=== PATIENT | female | born 1970 | race Two or more races ===

== ENCOUNTER 2019-04-11 16:29 | Emergency (ER) | payer OTHER ==
[~2019-04-11] VITALS: Ht 167.6 cm; Wt 74.8 kg
[2019-04-11] MEDS ORDERED: FAMOTIDINE 20 MG/2 ML VIAL IVP ONE (16:45)
[2019-04-11] MEDS ORDERED: ONDANSETRON PF 4 MG/2 ML VIAL. IV ONE (16:45)
[2019-04-11] MEDS ORDERED: LIDO:MAALOX 1:1 20 ML SINGLE DOSE. SWSW ONE (16:45)
[2019-04-11] MEDS ORDERED: IV NORMAL SALINE 1000ML BAG 1,000 ML IV ONE (16:45)
[2019-04-11 17:03] LABS: BILIRUBIN,URINE NEGATIVE (NEG); CLARITY,URINE TURBID; COLOR,URINE AMBER; NITRITE,URINE NEGATIVE (NEG); PH,URINE 5.5; PROTEIN,URINE NEGATIVE (NEG-TRACE); UROBILINOGEN,URINE 0.2 mg/dL (0.2 mg/dL)
[2019-04-11 17:04] LABS: BASO % 0 % (0-3); EOS % 0 % (0-3); HEMATOCRIT 40.4 % (36.0-47.0); HEMOGLOBIN 13.6 g/dL (12.0-15.5); LYMPH # 0.7 x10^3/uL (1.0-4.8); LYMPH % 6 % (24-48); MEAN CORPUSCULAR HEMOGLOBIN 29 pg (25-35); MEAN CORPUSCULAR HGB CONC 34 g/dL (31-37); MEAN CORPUSCULAR VOLUME 85 fL (79-100); MONO # 0.3 x10^3/uL (0.0-1.1); MONO % 2 % (0-9); NEUT # 11.7 x10^3uL (1.8-7.7); NEUT % 92 % (31-73); PLATELET COUNT 202 x10^3/uL (140-400); RED BLOOD COUNT 4.75 x10^6/uL (3.50-5.40); WHITE BLOOD COUNT 12.7 x10^3/uL (4.0-11.0)
[2019-04-11 17:19] LABS: AMORPHOUS SEDIMENT,UR PRESENT /HPF; BACTERIA,URINE 0 /HPF (0-FEW); RBC,URINE 0 /HPF (0-2); SQUAMOUS EPITHELIAL CELL,UR MOD /LPF; WBC,URINE 0 /HPF (0-4)
[2019-04-11 17:25] LABS: AMPHETAMINE/METHAMPHETAMINE NEG (NEG); BARBITURATES NEG (NEG); BENZODIAZEPINES NEG (NEG); CANNABINOIDS NEG (NEG); COCAINE NEG (NEG); METHADONE NEG (NEG); OPIATES NEG (NEG); PHENCYCLIDINE NEG (NEG)
[2019-04-11 18:54] VITALS: BP 133/63
[2019-04-11 19:07] LABS: CALCIUM 8.7 mg/dL (8.5-10.1); CREATININE 0.6 mg/dL (0.6-1.0); GFR 105.8; POTASSIUM 3.7 mmol/L (3.5-5.1)
[2019-04-11 19:13] LABS: ALBUMIN 3.5 g/dL (3.4-5.0); ALBUMIN/GLOBULIN RATIO 0.9 (1.0-1.7); MAGNESIUM 1.9 mg/dL (1.8-2.4); TOTAL BILIRUBIN 0.8 mg/dL (0.2-1.0); TOTAL PROTEIN 7.6 g/dL (6.4-8.2)
[2019-04-11] MEDS ORDERED: IOHEXOL 300 MG/ML 100ML VIAL. IV ONE (19:15)
[2019-04-11 19:23] LABS: % BANDS 15 % (0-9); % LYMPHS 5 % (24-48); % MONOS 3 % (0-10); % SEGS 77 % (35-66)
[2019-04-11 19:24] LABS: PLT ESTIMATE ADEQUATE (ADEQUATE)
[2019-04-11 19:30] LABS: CREATINE KINASE 63 U/L (26-192)
[2019-04-11] MEDS ORDERED: CONTRAST GIVEN. MC PRN (19:30)
--- NOTE | 2019-04-11 19:36 | PHYS DOC ---
Past Medical History Past Medical History: GERD (ZOE RICO APRN) Past Surgical History: No Surgical History (ZOE RICO APRN) Alcohol Use: None Drug Use: None (ZOE RICO APRN) Adult General Chief Complaint Chief Complaint: ABDOMINAL PAIN HPI HPI Patient is a 49 year old female with a history of acid reflux who presents to the ED today complaining of lower abdominal pain rated at 6 out of 10 described as sharp intermittently since 11 AM with nausea and vomiting. Patient denies anything exacerbating or relieving the pain. Denies any diarrhea. (ZOE RICO APRN) Review of Systems Review of Systems Constitutional: Denies fever or chills [] Eyes: Denies change in visual acuity, redness, or eye pain [] HENT: Denies nasal congestion or sore throat [] Respiratory: Denies cough or shortness of breath [] Cardiovascular: No additional information not addressed in HPI [] GI: Reports lower abdominal pain with nausea vomiting, denies bloody stools or diarrhea [] : Denies dysuria or hematuria [] Musculoskeletal: Denies back pain or joint pain [] Integument: Denies rash or skin lesions [] Neurologic: Denies headache, focal weakness or sensory changes [] All other systems were reviewed and found to be within normal limits, except as documented in this note. (ZOE RICO APRN) Current Medications Current Medications Current Medications Medications (Trade) Dose Ordered Sig/Rinku Start Time Stop Time Status Last Admin Dose Admin Ciprofloxacin/ Dextrose 200 ml @ 200 mls/hr 1X ONCE 04/11/19 21:00 04/11/19 21:16 DC 04/11/19 20:09 200 MLS/HR Famotidine (Pepcid Vial) 20 mg 1X ONCE 04/11/19 16:45 04/11/19 16:57 DC 04/11/19 17:06 20 MG Info (CONTRAST GIVEN -- Rx MONITORING) 1 each PRN DAILY PRN 04/11/19 19:30 04/11/19 21:16 DC Iohexol (Omnipaque 300 Mg/ml) 75 ml 1X ONCE 04/11/19 19:15 04/11/19 19:20 DC 04/11/19 19:25 75 ML Metronidazole 100 ml @ 100 mls/hr 1X ONCE 04/11/19 20:00 04/11/19 20:59 DC 04/11/19 20:09 100 MLS/HR Multi-Ingredient Mouthwash/Gargle (Gi Cocktail) 20 ml 1X ONCE 04/11/19 16:45 04/11/19 16:57 DC 04/11/19 17:07 20 ML Ondansetron HCl (Zofran) 4 mg 1X ONCE 04/11/19 16:45 04/11/19 16:57 DC 04/11/19 17:07 4 MG Sodium Chloride 1,000 ml @ 1,000 mls/hr 1X ONCE 04/11/19 16:45 04/11/19 17:44 DC 04/11/19 17:07 1,000 MLS/HR (JAYY GARCIA DO) Allergies Allergies Allergies Coded Allergies Type Severity Reaction Last Updated Verified No Known Drug Allergies 04/11/19 No (JAYY GARCIA DO) Physical Exam Physical Exam Constitutional: Well developed, well nourished, no acute distress, non-toxic appearance. [] HENT: Normocephalic, atraumatic, bilateral external ears normal, oropharynx moist, no oral exudates, nose normal. [] Eyes: PERRLA, EOMI, conjunctiva normal, no discharge. [] Neck: Normal range of motion, no tenderness, supple, no stridor. [] Cardiovascular:Heart rate regular rhythm, no murmur [] Lungs & Thorax: Bilateral breath sounds clear to auscultation [] Abdomen: Bowel sounds normal, soft, mild tenderness to the epigastric region, no point tenderness to the right upper quadrant or right lower quadrant, no masses, no pulsatile masses. [] Skin: Warm, dry, no erythema, no rash. [] Back: No tenderness, no CVA tenderness. [] Extremities: No tenderness, no cyanosis, no clubbing, ROM intact, no edema. [] Neurologic: Alert and oriented X 3, normal motor function, normal sensory function, no focal deficits noted. [] Psychologic: Affect normal, judgement normal, mood normal. [] (ZOE RICO APRN) Current Patient Data Vital Signs Vital Signs Date Time Temp Pulse Resp B/P (MAP) Pulse Ox O2 Delivery O2 Flow Rate FiO2 04/11/19 18:54 66 16 133/63 (86) 97 Room Air 04/11/19 16:35 98.1 98.1 (JAYY GARCIA DO) Lab Values Laboratory Tests Test 04/11/19 16:35 04/11/19 16:45 04/11/19 16:50 04/11/19 18:45 Urine Collection Type Unknown Urine Color [place] Urine Clarity Turbid Urine pH 5.5 Urine Specific [place] >=1.030 Urine Protein Negative mg/dL (NEG-TRACE) Urine Glucose (UA) Negative mg/dL (NEG) Urine Ketones (Stick) 15 mg/dL (NEG) Urine Blood Negative (NEG) Urine Nitrite Negative (NEG) Urine Bilirubin Negative (NEG) Urine Urobilinogen Dipstick 0.2 mg/dL (0.2 mg/dL) Urine Leukocyte Esterase Negative (NEG) Urine RBC 0 /HPF (0-2) Urine WBC 0 /HPF (0-4) Urine Squamous Epithelial Cells Mod /LPF Urine Amorphous Sediment Present /HPF Urine Bacteria 0 /HPF (0-FEW) Urine Mucus Mod /LPF Urine Opiates Screen Neg (NEG) Urine Methadone Screen Neg (NEG) Urine Barbiturates Neg (NEG) Urine Phencyclidine Screen Neg (NEG) Urine Amphetamine/Methamphetamine Neg (NEG) Urine Benzodiazepines Screen Neg (NEG) Urine Cocaine Screen Neg (NEG) Urine Cannabinoids Screen Neg (NEG) Urine Ethyl Alcohol Neg (NEG) POC Urine HCG, Qualitative Hcg negative (Negative) White Blood Count 12.7 x10^3/uL (4.0-11.0) H Red Blood Count 4.75 x10^6/uL (3.50-5.40) Hemoglobin 13.6 g/dL (12.0-15.5) Hematocrit 40.4 % (36.0-47.0) Mean Corpuscular Volume 85 fL (79-100) Mean Corpuscular Hemoglobin 29 pg (25-35) Mean Corpuscular Hemoglobin Concent 34 g/dL (31-37) Red Cell Distribution Width 14.0 % (11.5-14.5) Platelet Count 202 x10^3/uL (140-400) Neutrophils (%) (Auto) 92 % (31-73) H Lymphocytes (%) (Auto) 6 % (24-48) L Monocytes (%) (Auto) 2 % (0-9) Eosinophils (%) (Auto) 0 % (0-3) Basophils (%) (Auto) 0 % (0-3) Neutrophils # (Auto) 11.7 x10^3uL (1.8-7.7) H Lymphocytes # (Auto) 0.7 x10^3/uL (1.0-4.8) L Monocytes # (Auto) 0.3 x10^3/uL (0.0-1.1) Eosinophils # (Auto) 0.0 x10^3/uL (0.0-0.7) Basophils # (Auto) 0.0 x10^3/uL (0.0-0.2) Segmented Neutrophils % 77 % (35-66) H Band Neutrophils % 15 % (0-9) H Lymphocytes % 5 % (24-48) L Monocytes % 3 % (0-10) Platelet Estimate Adequate (ADEQUATE) Sodium Level 140 mmol/L (136-145) Potassium Level 3.7 mmol/L (3.5-5.1) Chloride Level 106 mmol/L (98-107) Carbon Dioxide Level 26 mmol/L (21-32) Anion Gap 8 (6-14) Blood Urea Nitrogen 14 mg/dL (7-20) Creatinine 0.6 mg/dL (0.6-1.0) Estimated GFR (Cockcroft-Gault) 105.8 BUN/Creatinine Ratio 23 (6-20) H Glucose Level 107 mg/dL (70-99) H Calcium Level 8.7 mg/dL (8.5-10.1) Magnesium Level 1.9 mg/dL (1.8-2.4) Total Bilirubin 0.8 mg/dL (0.2-1.0) Aspartate Amino Transferase (AST) 10 U/L (15-37) L Alanine Aminotransferase (ALT) 15 U/L (14-59) Alkaline Phosphatase 67 U/L (46-116) Creatine Kinase 63 U/L (26-192) Creatine Kinase MB (Mass) 0.8 ng/mL (0.0-3.6) Creatine Kinase MB Relative Index % (0-4) Troponin I Quantitative < 0.017 ng/mL (0.000-0.055) JG-Gce-F-Type Natriuretic Peptide 62 pg/mL (0-124) Total Protein 7.6 g/dL (6.4-8.2) Albumin 3.5 g/dL (3.4-5.0) Albumin/Globulin Ratio 0.9 (1.0-1.7) L Lipase 90 U/L (73-393) Thyroid Stimulating Hormone (TSH) 0.858 uIU/mL (0.358-3.74) Laboratory Tests 04/11/19 16:50 Laboratory Tests 04/11/19 18:45 (JAYY GARCIA DO) EKG EKG 17:[address] Leos sinus rhythm heart rate 61 no STEMI[] (ZOE RICO APRN) Radiology/Procedures Radiology/Procedures []PROCEDURE: CT ABD PELV W/ IV CONTRST ONLY PQRS Compliance statement: One or more of the following individualized dose reduction techniques were utilized for this examination: 1. Automated exposure control. 2. Adjustment of the mA and/or kV according to patient size. 3. Use of iterative reconstruction technique. Indication:Epigastric pain with nausea and vomiting. TECHNIQUE: CT abdomen and pelvis with IV contrast with multiplanar reformats. COMPARISON: None FINDINGS: Heart is normal in size. No pericardial or pleural effusion. Clear lung bases. Liver, spleen, pancreas, adrenals and kidneys within normal limits. Status post cholecystectomy. No enlarged retroperitoneal or pelvic adenopathy. No free pelvic fluid or ascites. No bowel obstruction. There is appearance of long segment circumferential wall thickening of the colon from hepatic flexure to rectum. Uterus is present. Urinary bladder is within minimal limits. Appendix is not visualized. No pneumoperitoneum. No suspicious bony lesion. IMPRESSION: Appearance of long segment wall thickening of the colon may be secondary to suboptimal distention/peristalsis or mild colitis. Clinically correlate with symptoms. Electronically signed by: Eugenio Howe DO (04/11/2019 7:44 PM) [facility] DICTATED and SIGNED BY: EUGENIO HOWE DO DATE: 04/11/191943 (ZOE RICO APRN) Course & Med Decision Making Course & Med Decision Making Pertinent Labs and Imaging studies reviewed. (See chart for details) This is a 49-year-old female patient presenting to the ED today with generalized lower abdominal pain since 11 AM. Also complaining of nausea and vomiting. Negative urine hCG, urinalysis negative for infection. CBC with a WBC of 12.7, left shift and bandemia noted. CMP-no acute findings. Vitals on arrival to the ED temperature 98.1 heart rate 66 respirations 16 blood pressure 163/89 O2 sats 97% on room air. CT of the abdomen and pelvic was noted for-appearance of long segment wall thickening of the colon may be secondary to suboptimal distention/peristalsis or mild colitis. Clinically correlate with symptoms. Patient's symptoms are currently nausea vomiting and lower abdominal pain. Has no diarrhea. We gave her a liter of fluid, Zofran. She was also given Flagyl and Cipro. I did offer her admission, she states she feels better and would like to be discharged. She was discharged with Zofran, dicyclomine, Cipro and Flagyl and provided instructions to follow-up with GI/PCP in the next 7 days. Provided return precautions and discharged in stable condition. 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 (ZOE RICO APRN) Departure Departure Impression: Primary Impression: Colitis Disposition: 01 HOME, SELF-CARE Condition: STABLE Referrals: NO PCP (PCP) EVARISTO OSORIO MD follow up in 1 week Patient Instructions: Colitis Additional Instructions: You were evaluated in the emergency room and noted to have possible colitis. We put you on antibiotics, ensure you complete them. Take the rest of the medications as ordered. Push fluids. Please come back to the ED if symptoms worsen. Scripts Dicyclomine Hcl (DICYCLOMINE HCL) 20 Mg Tablet 1 TAB PO TID, #30 TAB 1 Refill Prov: ZOE RICO APRN 04/11/19 Metronidazole (FLAGYL) 500 Mg Tablet 500 MG PO TID, #21 TAB Prov: ZOE RICO APRN 04/11/19 Ciprofloxacin Hcl (CIPRO) 500 Mg Tablet 1 TAB PO BID, #14 TAB Prov: ZOE RICO APRN 04/11/19 Ondansetron Hcl (ZOFRAN) 4 Mg Tablet 1 TAB PO Q6HRS, #20 TAB Prov: ZOE RICO APRN 04/11/19 Attending Signature Attending Signature I have reviewed the PA/[employer]'s note and plan of care. I was available for consultation as needed during the patient's visit in the emergency department. I agree with the clinical impression, plan, and disposition. (GARCIA,JAYY ZOE JORDAN APRN Apr 11, 2019 19:36 JAYY GARCIA DO Apr 12, 2019 05:26
--- NOTE | 2019-04-11 19:47 | RAD ---
PQRS Compliance statement: One or more of the following individualized dose reduction techniques were utilized for this examination: 1. Automated exposure control. 2. Adjustment of the mA and/or kV according to patient size. 3. Use of iterative reconstruction technique. Indication:Epigastric pain with nausea and vomiting. TECHNIQUE: CT abdomen and pelvis with IV contrast with multiplanar reformats. COMPARISON: None FINDINGS: Heart is normal in size. No pericardial or pleural effusion. Clear lung bases. Liver, spleen, pancreas, adrenals and kidneys within normal limits. Status post cholecystectomy. No enlarged retroperitoneal or pelvic adenopathy. No free pelvic fluid or ascites. No bowel obstruction. There is appearance of long segment circumferential wall thickening of the colon from hepatic flexure to rectum. Uterus is present. Urinary bladder is within minimal limits. Appendix is not visualized. No pneumoperitoneum. No suspicious bony lesion. IMPRESSION: Appearance of long segment wall thickening of the colon may be secondary to suboptimal distention/peristalsis or mild colitis. Clinically correlate with symptoms. Electronically signed by: Eugenio Howe DO (04/11/2019 7:44 PM) [facility]
[2019-04-11] MEDS ORDERED: ONDA4TAB7 PO (20:09)
[2019-04-11] MEDS ORDERED: CIPR500T94 PO (20:09)
[2019-04-11] MEDS ORDERED: METR500T PO (20:09)
[2019-04-11] MEDS ORDERED: DICY20TA3 PO (20:09)
[2019-04-11] MEDS ORDERED: CIPROFLOXACIN 400MG PREMIX 200 ML IV ONE (21:00)
--- NOTE | 2019-04-13 08:04 | EKG ---
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
== END 2019-04-11 21:05 | disposition home or self-care (01) ==
LOC: ER 16:29
DX: K52.89 Other specified noninfective gastroenteritis and colitis (principal); K21.9 Gastro-esophageal reflux disease without esophagitis
CPT/HCPCS: 36415; 74177; 80053; 80307; 81001; 81025; 82553; 83690; 83735; 83880; 84443; 84484; 85007; 85025; 93005; 96361; 96365; 96375; 99285; J0744; J2405; J3490; J7030; Q9967; 96368